=== PATIENT | male | born 1980 | race American Indian/Alaskan Native ===

== ENCOUNTER 2020-10-07 19:56 | Emergency (ER) | payer MEDICAID, OTHER ==
--- NOTE | 2020-10-07 21:34 | EDM.PDOC ---
ED HPI GENERAL MEDICAL PROBLEM - General Chief Complaint: Gastrointestinal Problem Stated Complaint: FEEDING TUBE IN STOMACH MIGHT BE SYPTIC Time Seen by Provider: 10/07/20 21:30 Source of Information: Reports: Patient History Limitations: Reports: No Limitations - History of Present Illness INITIAL COMMENTS - FREE TEXT/NARRATIVE: states feeding tube in his stomach looks infected going on past 2 weeks. not seen anyone since doesn't live here and is from [facility]. came in tonight cause can't stand the pain. Left Abdominal Pain Score (Numeric/FACES): 7 - Related Data Allergies Allergy/AdvReac Type Severity Reaction Status Date / Time No Known Allergies Allergy Verified 10/07/20 21:40 Home Meds: Home Meds . [No Known Home Meds] 10/07/20 [History] ED ROS GENERAL - Review of Systems Review Of Systems: Comprehensive ROS is negative, except as noted in HPI. ED EXAM, GI/ABD - Physical Exam Exam: See Below Exam Limited By: No Limitations General Appearance: Alert, WD/WN, Anxious, Mild Distress, Other (upset). No: Active Emesis Ears: Hearing Grossly Normal Throat/Mouth: Normal Voice, No Airway Compromise Head: Atraumatic Neck: Non-Tender, Full Range of Motion Respiratory/Chest: No Respiratory Distress Cardiovascular: Regular Rate, Rhythm GI/Abdominal Exam: Soft, Tender, Other (trender around feeding tube site with local exudate, no lymphangitis, mild erythema.). No: Distended, Guarding, Rigid, Rebound (Male) Exam: Deferred Rectal (Males) Exam: Deferred Back Exam: Full Range of Motion Extremities: Normal Range of Motion Neurological: Alert, Oriented, Normal Cognition, Normal Gait, No Motor/Sensory Deficits Psychiatric: Anxious Skin Exam: Warm, Dry, Normal Color Lymphatic: No Adenopathy Course - Vital Signs Last Recorded V/S: Last Vital Signs Temp 35.3 C L 10/07/20 21:31 Pulse 103 H 10/07/20 21:52 Resp 18 10/07/20 21:52 BP 138/93 H 10/07/20 21:52 Pulse Ox 99 10/07/20 21:52 - Orders/Labs/Meds Orders: Active Orders 24 hr Category Date Time Status CULTURE BLOOD [BC] Stat Lab 10/07/20 21:38 Received CULTURE WOUND [RM] Stat Lab 10/07/20 21:55 Received DRUG SCREEN URINE BIORAD [URCHEM] Stat Lab 10/07/20 21:29 Ordered UA RFX JUSTINO AND CULT IF INDIC [URIN] Stat Lab 10/07/20 21:29 Ordered Labs: Laboratory Tests 10/07/20 10/07/20 10/07/20 Range/Units 21:38 21:38 21:38 WBC 10.9 H (5.0-10.0) 10^3/uL RBC 5.35 (4.6-6.2) 10^6/uL Hgb 16.0 (14.0-18.0) g/dL Hct 48.8 (40.0-54.0) % MCV 91.2 (80-100) fL MCH 29.9 (27.0-34.0) pg MCHC 32.8 L (33.0-35.0) g/dL Plt Count 347 (150-450) 10^3/uL Neut % (Auto) 64.9 (42.2-75.2) % Lymph % (Auto) 25.0 (20.5-50.1) % [place] % (Auto) 7.4 (2-8) % Eos % (Auto) 2.4 (1.0-3.0) % Baso % (Auto) 0.3 (0.0-1.0) % Sodium 138 (136-145) mmol/L Potassium 4.1 (3.5-5.1) mmol/L Chloride 102 (98-107) mmol/L Carbon Dioxide 26 (21-32) mmol/L Anion Gap 14.1 H (7-13) mEq/L BUN 10 (7-18) mg/dL Creatinine 0.60 L (0.70-1.30) mg/dL Est Cr Clr Drug Dosing 181.43 mL/min Estimated GFR (MDRD) > 60 BUN/Creatinine Ratio 16.7 (No establ ref range) Glucose 94 (74-99) mg/dL Lactic Acid 1.9 (0.4-2.0) mmol/L Calcium 9.6 (8.5-10.1) mg/dL Total Bilirubin 0.3 (0.2-1.0) mg/dL AST 64 H (15-37) U/L ALT 156 H (16-63) U/L Alkaline Phosphatase 83 (46-116) U/L Total Protein 8.5 H (6.4-8.2) g/dL Albumin 3.5 (3.4-5.0) g/dL Globulin 5.0 Albumin/Globulin Ratio 0.7 Meds: Medications Discontinued Medications Generic Name Dose Route Start Last Admin Trade Name Alessandroq PRN Reason Stop Dose Admin Clindamycin Phosphate 900 mg/ 106 mls @ 200 mls/hr 10/07/20 23:03 10/07/20 23:21 Sodium Chloride IV 10/07/20 23:34 200 mls/hr ONETIME ONE Administration - Re-Assessments/Exams Free Text/Narrative Re-Assessment/Exam: 10/07/20 23:36 results discussed with pt. Departure - Departure Time of Disposition: 23:37 Disposition: Home, Self-Care 01 Condition: Fair Clinical Impression: Complaint associated with gastric tube, Wound infection, Poor compliance - Discharge Information Forms: ED Department Discharge Additional Instructions: 1) see clinic tomorrow for consult on gastric tube removal 2) keep area clean and dry. rx given; clindamycin 300mg qid x 40 Sepsis Event Note (ED) - Focused Exam Vital Signs: Vital Signs Temp Pulse Resp BP Pulse Ox 10/07/20 21:52 103 H 18 138/93 H 99 10/07/20 21:31 35.3 C L 105 H 22 H 131/93 H 100 - My Orders Last 24 Hours: My Active Orders 10/07/20 21:29 DRUG SCREEN URINE BIORAD [URCHEM] Stat UA RFX JUSTINO AND CULT IF INDIC [URIN] Stat 10/07/20 21:38 CULTURE BLOOD [BC] Stat 10/07/20 21:55 CULTURE WOUND [RM] Stat - Assessment/Plan Last 24 Hours: My Active Orders 10/07/20 21:29 DRUG SCREEN URINE BIORAD [URCHEM] Stat UA RFX JUSTINO AND CULT IF INDIC [URIN] Stat 10/07/20 21:38 CULTURE BLOOD [BC] Stat 10/07/20 21:55 CULTURE WOUND [RM] Stat
[2020-10-07 22:13] LABS: ANION GAP 14.1 mEq/L (7-13); CHLORIDE,CL 102 mmol/L (98-107); SODIUM,NA 138 mmol/L (136-145)
--- NOTE | 2020-10-07 23:04 | CT ---
PROCEDURE INFORMATION: Exam: CT Abdomen And Pelvis Without Contrast Exam date and time: 10/07/2020 10:42 PM Age: 39 years old Clinical indication: Other: Pain--missed appt to have feeding tube removed 2 weeks ago; Prior surgery; Additional info: Feeding tube placement TECHNIQUE: Imaging protocol: Computed tomography of the abdomen and pelvis without contrast. Radiation optimization: All CT scans at this facility use at least one of these dose optimization techniques: automated exposure control; mA and/or kV adjustment per patient size (includes targeted exams where dose is matched to clinical indication); or iterative reconstruction. COMPARISON: No relevant prior studies available. FINDINGS: Tubes, catheters and devices: A gastric tube has been placed. The tip is in the body of the stomach. Lungs: There are minor subpleural atelectatic densities in the dependent portions of the lungs. Liver: There is a diffuse decrease in hepatic parenchymal density, consistent with severe hepatic steatosis. The liver is otherwise unremarkable. Gallbladder and bile ducts: The gallbladder is normal. There is no evidence of biliary ductal dilation. Pancreas: The pancreas is normal. Spleen: The spleen is enlarged measuring 15.0 cm. No focal splenic lesion is seen. Adrenal glands: The adrenal glands are normal. The adrenal glands are normal. Kidneys and ureters: The kidneys are normal. No hydronephrosis. No visible calculi. Stomach and bowel: There is a small bowel suture line in the left abdomen. The loops at the anastomosis are dilated, this may be a postoperative situation. Non-specific/nonobstructive intestinal gas pattern. Appendix: There may have been prior appendectomy. The appendix is nonvisualized. Intraperitoneal space: No free air. No free fluid. Vasculature: There is no aortic aneurysm. Lymph nodes: There is no adenopathy. No pelvic adenopathy. Urinary bladder: The bladder is normal. Reproductive: Prostate is unremarkable. Seminal vesicles are unremarkable. Bones/joints: No acute bony findings are identified. Soft tissues: There are 2 midline anterior abdominal wall hernias, 1 above, 1 below the umbilicus. The defects measure approximately 4 cm. Small bowel enters both of these hernias. These may be incisional hernias. There multiple surgical clips in the right abdomen. IMPRESSION: 1. Loops of bowel small bowel about the small bowel suture line in the upper abdomen appear mildly to moderately dilated. This may reflect normal postoperative anatomy. The remainder of the loops in the area are unremarkable. Overall gas pattern is nonobstructive. Correlate with clinical data. 2. Anterior abdominal wall hernias as described. 3. Hepatic steatosis. 4. Splenomegaly. 5. Other findings as described
[2020-10-07] MEDS: Clindamycin Phosphate 900 MG in Sodium Chloride 0.9% 100 ML IV ONE (23:21)
== END 2020-10-08 00:09 | disposition home or self-care (01) ==
LOC: DL.ED 19:56
DX: T81.49XA Infection following a procedure, other surgical site, initial encounter (principal)
CPT/HCPCS: 36415; 74176; 80053; 83605; 85025; 87040; 87070; 87077; 87186; 96365; 99283; J3490